=== PATIENT | male | born 1975 | race Caucasian/White ===

== ENCOUNTER 2017-08-01 23:35 | Emergency (ER) | payer MEDICAID ==
[2017-08-01] MEDS ORDERED: LORazepam 2 MG/ML INJ IVP ONE (23:42)
[2017-08-01 23:46] VITALS: TEMP 97.9
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
--- NOTE | 2017-08-01 23:54 | CPEKG ---
Heart Rate: 81 RR Interval: 741 P-R Interval: 168 QRSD Interval: 80 QT Interval: 396 QTC Interval: 460 P Nicolaus: 61 QRS Nicolaus: 89 T Wave Nicolaus: 256 EKG Severity - ABNORMAL ECG - EKG Impression: SINUS RHYTHM EKG Impression: NONSPECIFIC T ABNORMALITIES, LATERAL LEADS Electronically Signed By: Humberto Edouard 07-Aug-2017 11:46:36
[2017-08-02 00:04] LABS: PLATELET COUNT 157 10^3/uL (150-400)
[2017-08-02 00:07] VITALS: BP 155/92; PULSE 87; RESP 16; O2SAT 94
[2017-08-02] MEDS ORDERED: chlordiazePOXIDE 25 MG CAP PO ONE (00:24)
[2017-08-02] MEDS ORDERED: CHLORDIAZEPOXIDE 25MG PREPK#6 BTL TAKEHOME ONE (00:24)
== END 2017-08-02 00:44 | disposition home or self-care (01) ==
DX: F10.230 Alcohol dependence with withdrawal, uncomplicated (principal); I10 Essential (primary) hypertension; F17.200 Nicotine dependence, unspecified, uncomplicated
CPT/HCPCS: 96374; G0480; J2060

== ENCOUNTER 2017-09-09 22:13 | Emergency (ER) | payer MEDICAID ==
[2017-09-09] MEDS ORDERED: NS 1,000 ML IV ONE (22:16)
[2017-09-09] MEDS ORDERED: LORazepam 2 MG/ML INJ IVP ONE (22:16)
[2017-09-09] MEDS ORDERED: GABAPENTIN 300 MG CAP PO ONE (22:16)
[2017-09-09 22:19] VITALS: RESP 18; TEMP 98.6
--- NOTE | 2017-09-09 22:20 | EDPHY ---
H & P HPI/ROS: HPI CHIEF COMPLAINT: "I feel like I a seizure is coming on" HISTORY OF PRESENT ILLNESS: This patient is a 41-year-old male, he is homeless , alcoholic and daily drinks alcohol, additionally he states that he has seizures and takes gabapentin for this however has not been taking his gabapentin for over week. He presents emergency room from the homeless skilled nursing stating he feels like his seizures coming on. He feels very lightheaded. He denies any chest pain or shortness of breath. He does feel anxious. He is requesting some gabapentin here in the emergency room. His last drink he thinks was around 4:00 p.m. today. He only had 4 beers which he states is a small amount for him. Past Medical History: Seizures, alcohol withdrawal seizures, alcoholism Past Surgical History: No recent surgery Social History: Homeless, daily alcohol use, denies illicit drugs. Family History: Noncontributory ROS REVIEW OF SYSTEMS: A comprehensive 10 point review of systems is otherwise negative aside from elements mentioned in the history of present illness. Exam Constitutional appears well nontoxic, somewhat anxious, triage nursing summary reviewed, vital signs reviewed, awake/alert. Eyes normal conjunctivae and sclera, EOMI, PERRLA. HENT normal inspection, atraumatic, moist mucus membranes, no epistaxis, neck supple/ no meningismus, no raccoon eyes. Respiratory clear to auscultation bilaterally, normal breath sounds, no respiratory distress, no wheezing. Cardiovascular rate normal, regular rhythm, no murmur, no edema, distal pulses normal. Gastrointestinal soft, non-tender, no rebound, no guarding, normal bowel sounds, no distension, no pulsatile mass. Genitourinary no CVA tenderness. Musculoskeletal no midline vertebral tenderness, full range of motion, no calf swelling, no tenderness of extremities, no meningismus, good pulses, neurovascularly intact. Skin pink, warm, & dry, no rash, skin atraumatic. Neurologic with full extension of his arms he has fine tremors, with tongue extension he has tongue fasciculations awake, alert and oriented x 3, AAOx3, moves all 4 extremities equally, motor intact, sensory intact, CN II-XII intact , normal cerebellar, normal vision, normal speech. Psychiatric normal mood/affect. Heme/Lymph/Immune no lymphadenopathy. Differential Diagnosis: Includes but is not limited to in a particular order acute anxiety, panic attack, electrolyte disturbance, alcohol withdrawal, alcohol draw seizure, seizure disorder, medication noncompliance Medical Decision Making: Plan for this patient check basic blood work, IV establishment with IV fluid bolus 1 L normal saline, IV Ativan 1 mg for anxiety and seizure suppression, additionally will give a dose gabapentin. Re-evaluation: 2246: Patient resting comfortably no acute distress. Feels much better after IV fluids. IV Ativan 1 mg, and gabapentin. I will provide him a prescription for gabapentin to help with seizure precautions. I did discussed return precautions with the patient. He understands return emergency room if he has further feelings of anxiety, nausea vomiting, chest pain shortness of breath or headache. Vital signs have improved. Blood pressure down to 150 systolic from arrival. Return precautions discussed. Source: Patient, EMS - Medical/Surgical History Hx Asthma: No Hx Chronic Respiratory Disease: No Hx Diabetes: No Hx Cardiac Disease: No Hx Renal Disease: No Hx Cirrhosis: No Hx Alcoholism: Yes Hx HIV/AIDS: No Hx Splenectomy or Spleen Trauma: No Other PMH: HTN, bipolar, anxiety - Social History Smoking Status: Heavy smoker Constitutional: Initial Vital Signs Temperature (C) 37.0 C 09/09/17 22:15 Heart Rate 78 09/09/17 22:15 Respiratory Rate 18 09/09/17 22:15 Blood Pressure 156/85 H 09/09/17 22:15 O2 Sat (%) 97 09/09/17 22:15 O2 Delivery Mode Room Air Allergies/Adverse Reactions: No Known Allergies Allergy (Unverified 08/01/17 23:46) Home Medications: Medication Instructions Recorded Norvasc 08/01/17 Abilify 09/09/17 Celexa 09/09/17 GABAPENTIN 09/09/17 GABAPENTIN 400 mg PO TID #30 tablet 09/09/17 Medical Decision Making - Data Points Laboratory Results: Laboratory Results 09/09/17 20:15 09/09/17 20:15 09/09/17 09/09/17 20:15 20:15 WBC 4.08 10^3/uL 10^3/uL (3.80-9.50) RBC 4.15 10^6/uL L 10^6/uL (4.40-6.38) Hgb 14.2 g/dL g/dL (13.7-17.5) Hct 39.7 % L % (40.0-51.0) MCV 95.7 fL fL (81.5-99.8) MCH 34.2 pg H pg (27.9-34.1) MCHC 35.8 g/dL g/dL (32.4-36.7) RDW 14.4 % % (11.5-15.2) Plt Count 194 10^3/uL 10^3/uL (150-400) MPV 11.2 fL fL (8.7-11.7) Neut % (Auto) 40.7 % % (39.3-74.2) Lymph % (Auto) 40.4 % % (15.0-45.0) [place] % (Auto) 15.0 % H % (4.5-13.0) Eos % (Auto) 1.7 % % (0.6-7.6) Baso % (Auto) 1.7 % % (0.3-1.7) Nucleat RBC Rel Count 0.0 % % (0.0-0.2) Absolute Neuts (auto) 1.66 10^3/uL L 10^3/uL (1.70-6.50) Absolute Lymphs (auto) 1.65 10^3/uL 10^3/uL (1.00-3.00) Absolute Monos (auto) 0.61 10^3/uL 10^3/uL (0.30-0.80) Absolute Eos (auto) 0.07 10^3/uL 10^3/uL (0.03-0.40) Absolute Basos (auto) 0.07 10^3/uL 10^3/uL (0.02-0.10) Absolute Nucleated RBC 0.00 10^3/uL 10^3/uL (0-0.01) Immature Gran % 0.5 % % (0.0-1.1) Immature Gran # 0.02 10^3/uL 10^3/uL (0.00-0.10) Sodium 137 mEq/L mEq/L (135-145) Potassium 4.3 mEq/L mEq/L (3.5-5.2) Chloride 102 mEq/L mEq/L (97-110) Carbon Dioxide 21 mEq/l L mEq/l (22-31) Anion Gap 14 mEq/L mEq/L (8-16) BUN 9 mg/dL mg/dL (7-23) Creatinine 0.8 mg/dL mg/dL (0.7-1.3) Estimated GFR > 60 Glucose 94 mg/dL mg/dL (70-100) Calcium 9.1 mg/dL mg/dL (8.5-10.4) Medications Given: Discontinued Medications Gabapentin (Neurontin) 600 mg PO EDNOW ONE Stop: 09/09/17 22:17 Last Admin: 09/09/17 22:23 Dose: 600 mg Sodium Chloride (Ns) 1,000 mls @ 0 mls/hr IV EDNOW ONE; Wide Open PRN Reason: Protocol Stop: 09/09/17 22:17 Last Admin: 09/09/17 22:24 Dose: 1,000 mls Lorazepam (Ativan Injection) 1 mg IVP EDNOW ONE Stop: 09/09/17 22:17 Last Admin: 09/09/17 22:24 Dose: 1 mg Departure - Departure Disposition: Home, Routine, Self-Care Clinical Impression: Alcohol withdrawal Qualifiers: Complication of substance-induced condition: uncomplicated Qualified Code(s): F10.230 - Alcohol dependence with withdrawal, uncomplicated Condition: Good Instructions: Alcohol Withdrawal (ED) Referrals: Patient,NotPresent [Unknown] - As per Instructions Prescriptions: GABAPENTIN 400 mg PO TID #30 tablet
[2017-09-09 22:26] LABS: PLATELET COUNT 194 10^3/uL (150-400)
[2017-09-09 23:00] VITALS: BP 154/87; PULSE 84; O2SAT 96
== END 2017-09-09 23:02 | disposition home or self-care (01) ==
LOC: EDUNIT#
DX: F10.230 Alcohol dependence with withdrawal, uncomplicated (principal); I10 Essential (primary) hypertension; F17.200 Nicotine dependence, unspecified, uncomplicated; E86.9 Volume depletion, unspecified
CPT/HCPCS: 96374; J2060

== ENCOUNTER 2017-09-17 18:33 | Emergency (ER) | payer MEDICAID ==
[2017-09-17 18:38] VITALS: TEMP 98.4
[2017-09-17] MEDS ORDERED: LORazepam 1 MG TAB PO ONE (18:42)
--- NOTE | 2017-09-17 18:58 | EDPHY ---
H & P Stated Complaint: withdrawal Time Seen by Provider: 09/17/17 18:49 HPI/ROS: CHIEF COMPLAINT: Alcohol withdrawal HISTORY OF PRESENT ILLNESS: The patient is a 41-year-old man with history of alcoholism and homelessness. He called the ambulance today because he could not afford any alcohol and was beginning to withdrawal. He has not drank in 24 hr. He has had withdrawal seizures in the past. In the ambulance he was given Valium and IV fluids. Here he was given a mg of Ativan by nursing protocol. He states that he has already feeling much better. He is not tachycardic. He is not tremulous. He does not wish to stop drinking alcohol and does not want to go to the [facility]. REVIEW OF SYSTEMS: Constitutional: denies: chills, fever, recent illness, recent injury EENTM: denies: blurred vision, double vision, nose congestion Respiratory: denies: cough, shortness of breath Cardiac: denies: chest pain, irregular heart rate, lightheadedness, palpitations Gastrointestinal/Abdominal: denies: abdominal pain, diarrhea, nausea, vomiting, blood streaked stools Genitourinary: denies: dysuria, frequency, hematuria, pain Musculoskeletal: denies: joint pain, muscle pain Skin: denies: lesions, rash, jaundice, bruising Neurological: denies: headache, numbness, paresthesia, tingling, dizziness, weakness Hematologic/Lymphatic: denies: blood clots, easy bleeding, easy bruising Immunologic/allergic: denies: HIV/AIDS, transplant EXAM: GENERAL: Alcoholic changes HEAD: Atraumatic, normocephalic. EYES: Pupils equal round and reactive to light, extraocular movements intact, sclera anicteric, conjunctiva are normal. ENT: TMs normal, nares patent, oropharynx clear without exudates. Moist mucous membranes. NECK: Normal range of motion, supple without lymphadenopathy or JVD. LUNGS: Breath sounds clear to auscultation bilaterally and equal. No wheezes rales or rhonchi. HEART: Regular rate and rhythm without murmurs, rubs or gallops. ABDOMEN: Soft, nontender, normoactive bowel sounds. No guarding, no rebound. No masses appreciated. BACK: No CVA tenderness, no spinal tenderness, step-offs or deformities EXTREMITIES: Normal range of motion, no pitting or edema. No clubbing or cyanosis. NEUROLOGICAL: Cranial nerves II through XII grossly intact. Normal speech, normal gait. 5/5 strength, normal movement in all extremities, normal sensation PSYCH: Normal mood, normal affect. SKIN: Warm, dry, normal turgor, no visible rashes or lesions. Source: Patient, EMS Exam Limitations: No limitations - Personal History Current Tetanus/Diphtheria Vaccine: Unsure Current Tetanus Diphtheria and Acellular Pertussis (TDAP): Unsure - Medical/Surgical History Hx Asthma: No Hx Chronic Respiratory Disease: No Hx Diabetes: No Hx Cardiac Disease: No Hx Renal Disease: No Hx Cirrhosis: No Hx Alcoholism: Yes Hx HIV/AIDS: No Hx Splenectomy or Spleen Trauma: No Other PMH: HTN, bipolar, anxiety - Family History Significant Family History: No pertinent family hx - Social History Smoking Status: Heavy smoker Alcohol Use: Heavy Drug Use: Marijuana Constitutional: Initial Vital Signs Temperature (C) 36.9 C 09/17/17 18:36 Heart Rate 78 09/17/17 18:36 Respiratory Rate 18 09/17/17 18:36 Blood Pressure 147/109 H 09/17/17 18:36 O2 Sat (%) 96 09/17/17 18:36 O2 Delivery Mode Room Air Allergies/Adverse Reactions: No Known Allergies Allergy (Unverified 08/01/17 23:46) Home Medications: Medication Instructions Recorded Norvasc 08/01/17 Abilify 09/09/17 Celexa 09/09/17 GABAPENTIN 09/09/17 GABAPENTIN 400 mg PO TID #30 tablet 09/09/17 Medical Decision Making ED Course/Re-evaluation: The patient does not wish to go to the alcohol recovery Center. I do not feel safe discharging him with Librium if he is not going to be in a controlled environment. He states that he will return to drinking and does not wish to stop. His symptoms are under control will discharge him back to the street. 7:30 p.m. the patient is doing well. He is not tachycardic. He is not tremulous. He continues to refuse going to the alcohol recovery Center. He is planning to leave here and resumed drinking as soon as he can find alcohol. I will give him a dose of Librium prior to discharge. Differential Diagnosis: Partial list of the Differential diagnosis considered include but were not limited to; alcoholism, alcohol withdrawal, anxiety and although unlikely based on the history and physical exam, I also considered infection, head injury. I discussed these differential diagnoses and the plan with the patient as well as the usual and expected course. The patient understands that the diagnosis is provisional and that in medicine we are not always correct and that further workup is often warranted. Usual and customary warnings were given. All of the patient's questions were answered. The patient was instructed to return to the emergency department should the symptoms at all worsen or return, otherwise to followup with the physician as we discussed. - Data Points Medications Given: Discontinued Medications Chlordiazepoxide HCl (Librium) 50 mg PO EDNOW ONE Stop: 09/17/17 19:24 Last Admin: 09/17/17 19:49 Dose: 50 mg Lorazepam (Ativan) 1 mg PO EDNOW ONE Stop: 09/17/17 18:43 Last Admin: 09/17/17 18:45 Dose: 1 mg Departure - Departure Disposition: Home, Routine, Self-Care Clinical Impression: Alcohol dependence Qualifiers: Substance use status: unspecified alcohol-induced disorder Qualified Code(s): F10.29 - Alcohol dependence with unspecified alcohol-induced disorder Alcohol withdrawal Qualifiers: Complication of substance-induced condition: with unspecified complication Qualified Code(s): F10.239 - Alcohol dependence with withdrawal, unspecified Condition: Good Instructions: Alcohol Withdrawal (ED) Referrals: Patient,NotPresent [Unknown] - As per Instructions [facility],. [Clinic] - As per Instructions
[2017-09-17] MEDS ORDERED: chlordiazePOXIDE 25 MG CAP PO ONE (19:23)
[2017-09-17 19:58] VITALS: BP 145/89; PULSE 72; RESP 16; O2SAT 95
== END 2017-09-17 20:05 | disposition home or self-care (01) ==
LOC: EDUNIT#
DX: F10.239 Alcohol dependence with withdrawal, unspecified (principal); I10 Essential (primary) hypertension; F17.200 Nicotine dependence, unspecified, uncomplicated

== ENCOUNTER 2017-09-30 02:15 | Emergency (ER) | payer MEDICAID ==
[2017-09-30] MEDS ORDERED: chlordiazePOXIDE 25 MG CAP PO ONE (02:22)
--- NOTE | 2017-09-30 02:22 | EDPHY ---
H & P Time Seen by Provider: 09/30/17 02:18 HPI/ROS: Chief Complaint: Feels like he is going to have a seizure HPI: 41-year-old alcoholic homeless male presenting complaining of feelings that he might have had a seizure. Patient has a history of alcohol withdrawal seizures in the past. States his last drink was about 12 hr ago. States that he is all of his had seizures associated with alcohol withdrawal. No nausea or vomiting. No fevers or chills. No other recent illness. No falls or head injuries. He does have a history of some mental illness and does take gabapentin as well. He is not interested in going to the [facility] at this time. He states he has been treated with Librium or Ativan in the past. ROS: 10 point Review of Systems is negative except as noted in the HPI. PMH: Chronic alcoholism, alcohol withdrawal seizures Social History: No smoking, daily heavy alcohol, no recreational drug use Family History: non-contributory Physical Exam: Gen: Awake, Alert, No Distress, moderately tremulous HEENT: Nose: no rhinorrhea Eyes: PERRLA, EOMI Mouth: Moist mucosa Neck: Supple, no JVD Chest: nontender, lungs clear to auscultation Heart: S1, S2 normal, no murmur Abd: Soft, non-tender, no guarding Back: no CVA tenderness, no midline tenderness Ext: no edema, non-tender Skin: no rash Neuro: CN II-XII intact, Sensation grossly intact, Strength 5/5 in bilateral upper and lower extremities - Medical/Surgical History Hx Asthma: No Hx Chronic Respiratory Disease: No Hx Diabetes: No Hx Cardiac Disease: No Hx Renal Disease: No Hx Cirrhosis: No Hx Alcoholism: Yes Hx HIV/AIDS: No Hx Splenectomy or Spleen Trauma: No Other PMH: HTN, bipolar, anxiety - Social History Smoking Status: Heavy smoker Constitutional: Initial Vital Signs Temperature (C) 36.5 C 09/30/17 02:23 Heart Rate 62 09/30/17 02:23 Respiratory Rate 16 09/30/17 02:23 Blood Pressure 165/109 H 09/30/17 02:23 O2 Sat (%) 96 09/30/17 02:23 O2 Delivery Mode Room Air Allergies/Adverse Reactions: No Known Allergies Allergy (Verified 09/30/17 02:25) Home Medications: Medication Instructions Recorded [facility] 08/01/17 Abilify 09/09/17 GABAPENTIN 09/09/17 GABAPENTIN 400 mg PO TID #30 tablet 09/09/17 Sertraline HCl 09/30/17 Medical Decision Making ED Course/Re-evaluation: Patient has not had any seizure activity. Will discharge with a Librium prepack. Patient does not have any interest in going to the [facility]. He is not interested in stopping drinking at this time. Will discharge with follow-up at [facility] for any concerns. - Data Points Medications Given: Discontinued Medications Chlordiazepoxide HCl (Librium) 50 mg PO EDNOW ONE Stop: 09/30/17 02:23 Last Admin: 09/30/17 02:32 Dose: 50 mg Departure - Departure Disposition: Home, Routine, Self-Care Clinical Impression: Alcohol withdrawal Condition: Good Instructions: Alcohol Withdrawal (ED) Additional Instructions: Please seek help to stop drinking alcohol. Follow up with [facility] for any concerns. Referrals: [facility],. [Clinic] - As per Instructions
[2017-09-30 02:25] VITALS: TEMP 97.7
[2017-09-30] MEDS ORDERED: CHLORDIAZEPOXIDE 25MG PREPK#6 BTL TAKEHOME ONE (04:50)
[2017-09-30 05:03] VITALS: BP 157/90; PULSE 92; RESP 18; O2SAT 93
== END 2017-09-30 05:01 | disposition home or self-care (01) ==
LOC: EDUNIT#
DX: F10.239 Alcohol dependence with withdrawal, unspecified (principal); F17.200 Nicotine dependence, unspecified, uncomplicated; I10 Essential (primary) hypertension

== ENCOUNTER 2017-10-30 15:50 | Emergency (ER) | payer MEDICAID ==
[2017-10-30 16:03] VITALS: O2SAT 98
--- NOTE | 2017-10-30 16:50 | EDPHY ---
H & P Time Seen by Provider: 10/30/17 16:34 HPI/ROS: CHIEF COMPLAINT: Left eye pain HISTORY OF PRESENT ILLNESS: 41-year-old male presents to the emergency department with pain in his left eye. He states he woke up this morning and was stuck shot. He denies visual symptoms. Denies symptoms in the right eye. He does not were contacts. He denies trauma. ROS: Denies double vision, blurry vision, drainage from the right eye. Denies fevers or chills. Denies headache. Past Medical/Surgical History: Hypertension, bipolar, anxiety Social History: Homeless Smoking Status: Heavy smoker Physical Exam: Pupils:equal round and reactive to light EOMI Lids: Left Upper and lower eyelid redness and swelling noted. He appears to have an ordeal noted in the central aspect of his left lower eyelid. Right eye is clear. Skin: Swelling noted to the right and left upper eyelid along lid margin Conjunctivae: Mild injection noted to the left eye. There is purulent drainage noted with some dried crusting to both upper and the lower eyelashes. Cornea: Slit-lamp examination was not indicated. Anterior chamber:normal, no hyphema or hypopyon Constitutional: Initial Vital Signs Temperature (C) 36.5 C 10/30/17 16:00 Heart Rate 79 10/30/17 16:00 Respiratory Rate 16 10/30/17 16:00 Blood Pressure 133/80 H 10/30/17 16:00 O2 Sat (%) 98 10/30/17 16:00 O2 Delivery Mode Room Air Allergies/Adverse Reactions: No Known Allergies Allergy (Verified 10/30/17 16:01) Home Medications: Medication Instructions Recorded Norvasc 08/01/17 Abilify 09/09/17 GABAPENTIN 400 mg PO TID #30 tablet 09/09/17 Sertraline HCl 09/30/17 Cephalexin [Keflex] 500 mg PO QID #28 cap 10/30/17 Erythromycin 0.5% 0.5 inch LEFTEYE QID 7 Days 10/30/17 opht.oint MDM/Departure - MDM ED Course/Re-evaluation: 41-year-old male presents to the emergency department went clinically with ordeal Lum and likely blepharitis. He will be treated with topical antibiotics. He was also requesting oral antibiotics. He has had these symptoms in the past. I encouraged warm compresses. He will return if he develops fever, increasing he. I doubt periorbital cellulitis. - Depart Disposition: Home, Routine, Self-Care Clinical Impression: Hordeolum Qualifiers: Hordeolum type: externum Laterality: left Eyelid: unspecified eyelid Qualified Code(s): H00.016 - Hordeolum externum left eye, unspecified eyelid Condition: Good Instructions: Tiana (ED) Additional Instructions: Continue warm compresses as discussed for 15-20 minutes every 2-3 hours especially over the next 2 days. Keflex 500 mg 4 times daily for 1 week. Erythromycin ophthalmic ointment apply half-inch 4 times daily to the left on for 1 week. Prescriptions: Cephalexin [Keflex] 500 mg PO QID #28 cap Erythromycin 0.5% 0.5 inch LEFTEYE QID 7 Days opht.oint Referrals: Guera Pablo, OSVALDO [Primary Care Provider] - As per Instructions Alphonso García MD [Medical Doctor] - 2-3 days, if not improved ([facility]utter on-call)
[2017-10-30 17:10] VITALS: BP 146/87; PULSE 87; RESP 19; TEMP 98.9
== END 2017-10-30 17:08 | disposition home or self-care (01) ==
DX: H00.011 Hordeolum externum right upper eyelid (principal); H00.014 Hordeolum externum left upper eyelid; I10 Essential (primary) hypertension; F17.200 Nicotine dependence, unspecified, uncomplicated